=== PATIENT | female | born 1965 | race Caucasian/White ===

== ENCOUNTER 2016-06-30 12:02 | Outpatient (CLI) | payer OTHER ==
[2015-07-31 08:10] VITALS: BP 100/67
[2016-06-30 12:48] LABS: eGFR (African) > 60; eGFR (Non-African) > 60
== END 2016-06-30 12:03 ==
LOC: LAB 12:02
PROVIDERS: ATTEND Family Medicine
DX: E03.9 Hypothyroidism, unspecified (principal); J45.30 Mild persistent asthma, uncomplicated
CPT/HCPCS: 36415; 80053; 84443

== ENCOUNTER 2017-02-23 16:50 | Outpatient (CLI) | payer OTHER ==
[2015-07-31 08:10] VITALS: BP 100/67
== END 2017-02-23 16:52 ==
LOC: LABRHC 16:50
PROVIDERS: ATTEND Family Medicine
DX: Z11.3 Encounter for screening for infections with a predominantly sexual mode of transmission (principal)
CPT/HCPCS: 87491; 87591

== ENCOUNTER 2017-07-20 13:29 | Outpatient (CLI) | payer OTHER ==
[2015-07-31 08:10] VITALS: BP 100/67
== END 2017-07-20 13:30 ==
LOC: LAB 13:29
PROVIDERS: ATTEND Family Medicine
DX: E03.9 Hypothyroidism, unspecified (principal)
CPT/HCPCS: 36415; 84443

== ENCOUNTER 2017-09-28 16:49 | Outpatient (CLI) | payer OTHER ==
[2015-07-31 08:10] VITALS: BP 100/67
== END 2017-09-28 16:50 ==
LOC: LABRHC 16:49
PROVIDERS: ATTEND Family Medicine
DX: Z01.419 Encounter for gynecological examination (general) (routine) without abnormal findings (principal)
CPT/HCPCS: 88148; G0143

== ENCOUNTER 2018-05-24 10:05 | Emergency (ER) | payer OTHER ==
[2018-05-24] MEDS ORDERED: ONDANSETRON HCL/PF 4 MG/ 2ML VIAL IVP ONE (10:33)
[2018-05-24 10:58] LABS: BASOPHILS % 0.4 (0.0-1.5); EOSINOPHILS % 2.1 % (0.0-6.8); MONOCYTES % 6.1 % (0.0-11.0); NEUTROPHILS # 2.9 # k/uL (1.4-7.7)
[2018-05-24 11:09] LABS: eGFR (Non-African) > 60
--- NOTE | 2018-05-24 11:38 | ED Physician Documentation ---
Dizziness - HPI Stated Complaint: Dizziness Chief Complaint: Neurological Symptoms Additional Information: Patient presents to ED with dizziness, headache and nausea since she woke up this morning. Patient states when she moves her head the dizziness get worse. She also reports laying down on her left side makes the dizziness worse too. Patient reports a similar episode over the summer. At that time she went home and went to bed, when she woke up the symptoms had resolved. She denies any head trauma. Timing: gradual onset Duration: constant, noted on awakening Last known Well Date: 05/23/18 Last Known Well Time: 20:00 Last known Well Code/Unknown Code: Known Severity: moderate Associated Symptoms: nausea, headache, weakness Decreased Ability to Stand/ Walk: weak, off balance Usually: walks w/o assistance Worsened By: changing position, movement of head - ROS CONST: denies: fever EYES/ENT: denies: sore throat GI/: denies: abdominal pain, diarrhea LNMP: denies: MS/SKIN/LYMPH: none NEURO/PSYCH: none CVS/RESP: denies: chest pain, shortness of breath - PAST HX Past History: none Cardiac Disease: none Surgeries/Procedures: none Allergies/Adverse Reactions: Allergies Allergy/AdvReac Type Severity Reaction Status Date / Time No Known Drug Allergies Allergy Unverified 09/24/13 14:57 Home Medications: Ambulatory Orders Medication Instructions Recorded Ondansetron HCl Rapdis [Zofran Odt] 4 mg PO Q8 PRN #30 tab 05/24/18 - SOCIAL HX Smoking History: non-smoker Alcohol Use: none Drug Use: none - FAMILY HX Family History: none - VITAL SIGNS Vital Signs: Vital Signs Temp Pulse Resp BP Pulse Ox 76 15 144/74 05/24/18 10:10 05/24/18 10:10 05/24/18 10:10 - REVIEWED ASSESSMENTS Nursing Assessment Reviewed: Yes Vitals Reviewed: Yes ED Results Lab/Radiology - Lab Results Lab Results: Lab Results 05/24/18 05/24/18 Unknown Unknown WBC 5.40 K/ul K/ul (4.00-12.00) RBC 4.16 M/ul M/ul (3.90-5.20) Hgb 12.5 g/dL g/dL (12.0-16.0) Hct 37.6 % % (34.5-46.5) MCV 90.0 fl fl (80.0-100.0) MCH 30.0 pg pg (28.0-34.0) MCHC 33.2 g/dL g/dL (30.0-36.0) RDW 12.5 % % (11.3-14.3) Plt Count 283 K/mm3 K/mm3 (130-400) Neut % (Auto) 53.5 % % (39.0-79.0) Lymph % (Auto) 37.9 % % (16.0-50.0) Story % (Auto) 6.1 % % (0.0-11.0) Eos % (Auto) 2.1 % % (0.0-6.8) Baso % (Auto) 0.4 (0.0-1.5) Neut # (Auto) 2.9 # k/uL # k/uL (1.4-7.7) Lymph # (Auto) 2.1 # k/uL # k/uL (0.6-4.0) Story # (Auto) 0.3 # k/uL # k/uL (0.0-0.9) Eos # (Auto) 0.1 # k/uL # k/uL (0.0-0.6) Baso # (Auto) 0.0 # k/uL # k/uL (0.0-0.5) Sodium 142 mmol/L mmol/L (136-145) Potassium 3.8 mmol/L mmol/L (3.5-5.1) Chloride 104 mmol/L mmol/L (98-107) Carbon Dioxide 27 mmol/L mmol/L (22-30) BUN 16 mg/dL mg/dL (7-17) Creatinine 0.71 mg/dL mg/dL (0.52-1.04) Estimated Creat Clear 95 Est GFR ( Amer) > 60 (60 - ) Est GFR (Non-Af Amer) > 60 (60 - ) Glucose 108 mg/dL H mg/dL (74-106) Calcium 9.2 mg/dL mg/dL (8.4-10.2) Total Bilirubin 0.4 mg/dL mg/dL (0.2-1.3) AST 37 U/L U/L (15-46) ALT 28 U/L U/L (13-69) Alkaline Phosphatase 61 U/L U/L (38-126) Total Protein 7.3 g/dL g/dL (6.3-8.2) Albumin 4.7 g/dL g/dL (3.5-5.0) - Radiology Radiology Impressions: Examination: CT head without contrast History: Feeling dizzy starting today Comparison exam: None available Technique: Noncontrast head CT protocol. Findings: Ventricles and sulci are appropriate for patient age. Cerebrocerebellar parenchyma demonstrates normal attenuation. No evidence for parenchymal hemorrhage. No evidence for mass or mass effect. No midline shift. No extra axial fluid collections. Partial visualization of the paranasal sinuses dens is mild mucous thickening and small maxillary sinus air fluid levels. Mastoid air cells, orbits, skull and scalp without gross irregularity. Impression: No acute parenchymal process. No hemorrhage. Electronically signed on May 24, 2018 11:52:37 AM EAR MACHINE OPERATOR by: Jeet Carey - Orders Orders: ED Orders Category Date Time Status Place IV Lock 1T Care 05/24/18 10:[address] BRAIN W/O CONTRAST Stat Exams 05/24/18 Taken CBC/PLATELET/DIFF Routine Lab 05/24/18 Completed CMP Routine Lab 05/24/18 Completed Ondansetron HCl/Pf [Zofran] Med 05/24/18 10:33 Discontinued 4 mg IVP NOW ONE Dizziness Physical Exam - Physical Exam General Appearance: no distress EENT: eye inspection normal, ENT inspection normal, no signs of dehydration, [place], other (positive [place]unk[place] ) Neck: supple Respiratory: no respiratory distress, breath sounds nml CVS: reg rate & rhythm, heart sounds normal, equal pulses Abdomen: soft, normal bowel sounds, no distension. No: tenderness Skin: warm/dry, normal color Neuro: nml orientation, nml speech, mood/affect nml Extremities: non-tender, no edema Cranial: nml as tested. No: no evidence of acute CVA, facial droop, hearing deficit Cerebellar: nml as tested Sensorimotor: motor nml, sensation nml. No: weakness Discharge Clincal Impression: BPPV (benign paroxysmal positional vertigo) Qualifiers: Laterality: left Qualified Code(s): H81.12 - Benign paroxysmal vertigo, left ear Prescriptions: Ondansetron HCl Rapdis [Zofran Odt] 4 mg PO Q8 PRN #30 tab PRN Reason: nausea/vomiting Referrals: Shilo Ulrich MD [Primary Care Provider] - 2 Days Additional Instructions: 1. Refer to the following website for BPPV exercises. [email or web address] 2. Drink plenty of fluids to maintain proper hydration 3. Follow up with PCP within 1 week. May benefit from ENT referral 4. Return to ER for new or worsening symptoms. [facility]. [facility] Condition: Stable Disposition: 01 HOME, SELF-CARE Decision to Admit: NO Date of Decison to Admit: 05/24/18 Decision Time: 11:54
[2018-05-24 12:08] VITALS: BP 118/70
--- NOTE | 2018-05-24 15:41 | Diagnostic Imaging Report ---
<p>Your browser does not support iframes.</p> NEERAJ HSIEH [facility] [id number] [facility] [address] [place], [place]. [address] Report Submission Date: May 24, 2018 11:52:37 AM ACCOUNTS COLLECTOR Patient Study Name: VIKRAM AC Date: May 24, 2018 11:01:24 AM ACCOUNTS COLLECTOR Modality Type: CT\SR Gender: F Description: CT BRAIN W/O CONTRAST : 61 Institution: [facility] Physician: NEERAJ HSIEH Examination: CT head without contrast History: Feeling dizzy starting today Comparison exam: None available Technique: Noncontrast head CT protocol. Findings: Ventricles and sulci are appropriate for patient age. Cerebrocerebellar parenchyma demonstrates normal attenuation. No evidence for parenchymal hemorrhage. No evidence for mass or mass effect. No midline shift. No extra axial fluid collections. Partial visualization of the paranasal sinuses dens is mild mucous thickening and small maxillary sinus air fluid levels. Mastoid air cells, orbits, skull and scalp without gross irregularity. Impression: No acute parenchymal process. No hemorrhage. Electronically signed on May 24, 2018 11:52:37 AM ACCOUNTS COLLECTOR by: Jeet FLOOD
== END 2018-05-24 12:06 | disposition home or self-care (01) ==
LOC: ED 10:05
DX: H81.12 Benign paroxysmal vertigo, left ear (principal)
CPT/HCPCS: 36415; 70450; 80053; 85025; 96374; 99283; 99284; J2405; S1016

== ENCOUNTER 2018-07-14 13:03 | Outpatient (CLI) | payer OTHER | END 2018-07-14 13:10 | LOC: LAB 13:03 | PROVIDERS: ATTEND Family Medicine | DX: E03.9 Hypothyroidism, unspecified (principal) | CPT/HCPCS: 36415; 84443 ==